=== PATIENT | female | born 1985 | race Caucasian/White ===

== ENCOUNTER 2019-10-26 07:29 | Emergency (ER) | payer OTHER ==
[2019-10-26 07:58] VITALS: BP 132/84
--- NOTE | 2019-10-26 08:17 | UC ---
[facility] HPI - HPI Summary HPI Summary: WOKE UP LAST NIGHT WITH SWELLING RIGHT LOWER JAW. HAS KNOWN BROKEN TEETH. NO DOCUMENTED FEVER. - History of Current Complaint Chief Complaint: UCDentalProblem Stated Complaint: tooth ache Time Seen by Provider: 10/26/19 08:14 Hx Obtained From: Patient Hx Last Menstrual Period: IUD in place Onset/Duration: Sudden Onset, Lasting Hours, Still Present Severity: Moderate Pain Intensity: 8 Pain Scale Used: 0-10 Numeric Aggravating Factor(s): Heat, Cold, Chewing Alleviating Factor(s): Nothing - Allergies/Home Medications Allergies/Adverse Reactions: Allergies Allergy/AdvReac Type Severity Reaction Status Date / Time Penicillins Allergy Unknown Verified 10/26/19 07:58 Reaction Details PMH/Surg Hx/FS Hx/Imm Hx Respiratory History: Asthma - Surgical History Surgical History: Yes Surgery Procedure, Year, and Place: - Family History Known Family History: Positive: Non-Contributory - Social History Alcohol Use: Rare Substance Use Type: Excessive Caffeine Substance Use Comment - Amount & Last Used: diet coke all the time Smoking Status (MU): Heavy Every Day Tobacco Smoker Household Exposure Type: Cigarettes Review of Systems All Other Systems Reviewed And Are Negative: Yes Constitutional: Positive: Negative ENT: Positive: Dental Pain Respiratory: Positive: Negative Cardiovascular: Positive: Negative Gastrointestinal: Positive: Negative Physical Exam Triage Information Reviewed: Yes Appearance: Well-Nourished, Pain Distress - MODERATE Vital Signs: Initial Vital Signs Temp 98.8 F 10/26/19 07:55 Pulse 80 10/26/19 07:55 Resp 18 10/26/19 07:55 BP 132/84 10/26/19 07:55 Pulse Ox 94 10/26/19 07:55 Vital Signs Reviewed: Yes Eyes: Positive: Conjunctiva Clear ENT: Positive: Hearing grossly normal Dental: Positive: Gross Decay/Caries @ - DIFFUSELY., Dental Fracture @ - 28, 29 Neck: Positive: Supple, Tenderness @ - RIGHT ANTERIOR CERVICAL LAD, Enlarged Nodes @ - RIGHT ANTERIOR CERVICAL LAD, Other: - SOFT TISSUE SWELLING RIGHT LOWER JAW. Respiratory: Positive: No respiratory distress, No accessory muscle use Cardiovascular: Positive: Pulses Normal Abdomen Description: Positive: Soft Musculoskeletal: Positive: No Edema Neurological: Positive: Alert Psychological: Positive: Age Appropriate Behavior Skin: Negative: Rashes Dental Complaint Course/Dx - Course Course Of Treatment: PATIENT WITH DIFFUSELY POOR DENTITION WITH MULTIPLE TOOTH FRACTURES. WILL COVER FOR INFECTION WITH CLINDAMYCIN. PERIDEX MOUTH RINSE TWICE DAILY. IBUPROFEN NEEDED FOR PAIN. ENCOURAGED PATIENT TO CALL FOR DENTAL APPOINTMENT [facility]. - Differential Dx/Diagnosis Provider Diagnosis: Dental infection Discharge ED - Sign-Out/Discharge Documenting (check all that apply): Patient Departure All imaging exams completed and their final reports reviewed: No Studies - Discharge Plan Condition: Stable Disposition: HOME Prescriptions: Chlorhexidine MW 0.12% 473ML* [Peridex Mouth Wash 0.12%*] 15 ml SWISH SPIT BID # 1 bottle Clindamycin HCl 300 mg PO QID #40 capsule Ibuprofen TAB* [Motrin TAB* 800 MG] 800 mg PO Q8H PRN #30 tab PRN Reason: Pain Patient Education Materials: Toothache (ED) Referrals: [facility] [Outside] - If Needed Additional Instructions: TAKE THE ANTIBIOTICS FOR THE FULL COURSE. RINSE YOUR MOUTH WITH WATER AFTER EATING OR DRINKING ANYTHING. ANTISEPTIC MOUTH RINSE TWICE DAILY. TAKE IBUPROFEN NEEDED FOR PAIN. FOLLOW-UP WITH A DENTIST [facility]. [facility] DDS Dentist Office [address], [place] [address] Ha Lehman, CLEMENTINAS [address], [place] [address] Kiko Momin D.D.S. [address], [place] [address] Opens at 8am ORAL SURGERY [facility] Oral Surgery Teo Whitley [address] [place] [id number] [facility] Madhu George Jr., LexisD.S. [address], [address] [place] [address] [facility] Raul Christianson DDS [address] , [place] [address] CALL THE NUMBER BELOW FOR ASSISTANCE IN ESTABLISHING WITH A PCP An additional resource available to assist in finding the appropriate physician for your health care needs is the [facility] ([facility]em[facility]). You may contact them by calling [phone]. - Billing Disposition and Condition Condition: STABLE Disposition: Home
== END 2019-10-26 08:53 | disposition home or self-care (01) ==
LOC: UCEAST 07:29
DX: K04.7 Periapical abscess without sinus (principal); J45.909 Unspecified asthma, uncomplicated; M79.89 Other specified soft tissue disorders; F17.210 Nicotine dependence, cigarettes, uncomplicated; Z88.0 Allergy status to penicillin; S02.5XXA Fracture of tooth (traumatic), initial encounter for closed fracture; X58.XXXA Exposure to other specified factors, initial encounter; Y92.9 Unspecified place or not applicable
CPT/HCPCS: 99202; G0463

== ENCOUNTER 2024-09-11 18:05 | Inpatient (IN) ==
[2024-09-11] MEDS ORDERED: Albuterol/Ipratropium NEB.SOL (2.5/0.5 MG) 3 ML NEB.SOLN ONE (18:26)
[2024-09-11] MEDS: Albuterol/Ipratropium NEB.SOL (2.5/0.5 MG) 3 ML NEB.SOLN INH PRN (18:32)
[2024-09-11] MEDS: Magnesium Sulfate 2 gm BAG 2 GM/50 ML BAG IVPB ONE (18:50)
[2024-09-11] MEDS: methylPREDNISolone SOD SUCC 125 mg 2 ML VIAL IV ONE (18:50)
[2024-09-11 18:52] LABS: Venous Bicarbonate HCO3 35.5 mmol/L (24-28)
[2024-09-11 18:57] LABS: ABS Basophils 0.1 10^3/uL (0.0-0.1); ABS Eosinophils 0.1 10^3/uL (0.0-0.5); ABS Lymphocytes 1.6 10^3/uL (1.0-4.8); ABS Monocytes 0.7 10^3/uL (0.0-0.9); ABS Neutrophils 4.7 10^3/uL (1.5-7.6); ABS Nucleated RBC 0.01 10^3/ul; Eosinophil % 1.7 %; Hematocrit 36.5 % (35-45); Mean Corpuscular Hemoglobin 27.9 pg (27-33); Mean Corpuscular Hgb Conc 32.9 g/dL (31-36); Mean Corpuscular Volume 84.8 fL (80-97); Mean Platelet Volume 8.2 fL (7.5-11.2); Nucleated Red Blood Cells % 0.2 %/100WBC (0.0-0.8); Platelet Count 212 10^3/uL (150-450); Red Blood Count 4.31 10^6/uL (3.63-4.92); Red Cell Distribution Width 18.2 % (12-17); White Blood Count 7.3 10^3/uL (3.8-11.8)
[2024-09-11 19:35] LABS: Albumin 3.7 g/dL (3.2-5.2); Albumin/Globulin Ratio 0.9 (1-3); Calcium 8.8 mg/dL (8.6-10.3); Creatinine, Serum 0.78 mg/dL (0.51-0.95); Globulin 4.1 g/dL (2-4); Potassium 3.5 mmol/L (3.5-5.0); Total Bilirubin 0.5 mg/dL (0.2-1.0); Total Protein 7.8 g/dL (6.4-8.9); eGFR CKD-EPI 100.3 (>60)
[2024-09-11] MEDS: Iohexol 350 (CONTRAST) 500 ML MDV IV ONE (20:18)
[2024-09-11 20:26] LABS: High Sensitivity Troponin 1 Hr 13 pg/mL (<15)
[2024-09-11] MEDS: Nicotine PATCH 21 MG/24 HR PATCH TRANSDERM ONE (21:22)
[2024-09-11] MEDS: Albuterol/Ipratropium NEB.SOL (2.5/0.5 MG) 3 ML NEB.SOLN INH ONE (23:51)
[2024-09-12] MEDS ORDERED: Nicotine GUM 4MG FRUIT FLAVOR PO PRN (01:20)
[2024-09-12] MEDS: cefTRIAXone 1 gm/50 mL D5W 1 GM/50 ML BAG IV SCH (02:06)
[2024-09-12] MEDS: Albuterol/Ipratropium NEB.SOL (2.5/0.5 MG) 3 ML NEB.SOLN INH SCH ×2 (02:06→19:55)
[2024-09-12] MEDS: Lidocaine PATCH 5% PATCH TRANSDERM SCH ×2 (02:07→02:08)
[2024-09-12] MEDS: methylPREDNISolone SOD SUCC 40 mg/ml 1 ml VIAL IV SCH (02:09)
[2024-09-12] MEDS: Potassium Chlor 20 meq TAB.ER PO SCH (02:09)
[2024-09-12] MEDS: Furosemide 20 mg/2 ml IV VIAL IV ONE (02:52)
[2024-09-12 04:30] LABS: TSH Ultra Thyroid Stim Horm 4.7 mcIU/mL (0.34-5.60)
[2024-09-12 05:55] LABS: Hematocrit 33.3 % (35-45); Hemoglobin 11.1 g/dL (11.5-14.3); Mean Corpuscular Hemoglobin 28.1 pg (27-33); Mean Corpuscular Hgb Conc 33.4 g/dL (31-36); Mean Platelet Volume 8.3 fL (7.5-11.2); Platelet Count 182 10^3/uL (150-450); Red Blood Count 3.97 10^6/uL (3.63-4.92); White Blood Count 4.7 10^3/uL (3.8-11.8)
[2024-09-12 06:39] LABS: Calcium 8.4 mg/dL (8.6-10.3); Creatinine, Serum 0.78 mg/dL (0.51-0.95); Potassium 3.5 mmol/L (3.5-5.0); eGFR CKD-EPI 100.3 (>60)
[2024-09-12 07:30] LABS: ABS Lymphocytes 0.6 10^3/uL (1.0-4.8); ABS Monocytes 0.1 10^3/uL (0.0-0.9); ABS Neutrophils 3.9 10^3/uL (1.5-7.6); Anisocytosis 1+; Eosinophil % 0.1 %; Lymphocyte % 12.7 %; Nucleated Red Blood Cells % 0.1 %/100WBC (0.0-0.8); Polychromasia 1+
[2024-09-12] MEDS: Sulfur Hexaflouride MICROSPHR 25 MG VIAL IV PRN (08:27)
[2024-09-12] MEDS: FLUTICAS/UMECLI/VILANT 200-62.5-25 MDI (NF) INH SCH (10:13)
[2024-09-12] MEDS: Solifenacin 5 mg TAB (NF) PO SCH (10:13)
[2024-09-12] MEDS: Nicotine PATCH 21 MG/24 HR PATCH TRANSDERM SCH (10:13)
[2024-09-12] MEDS: Furosemide 40 mg/4 ml IV VIAL IV SCH (11:22)
[2024-09-12] MEDS: Azithromycin 500 mg/250 ml NS 500 MG/250 ML BAG IVPB SCH (11:22)
[2024-09-13] MEDS: cefTRIAXone 1 gm/50 mL D5W 1 GM/50 ML BAG IV SCH (00:25)
[2024-09-13] MEDS: Albuterol/Ipratropium NEB.SOL (2.5/0.5 MG) 3 ML NEB.SOLN INH PRN (01:09)
[2024-09-13] MEDS: guaiFENesin 100 mg/5 ml LIQ unit dose cup PO PRN (01:16)
[2024-09-13] MEDS ORDERED: cefTRIAXone 1 gm/50 mL D5W 1 GM/50 ML BAG IV SCH (02:00)
[2024-09-13 08:14] LABS: ABS Basophils 0.1 10^3/uL (0.0-0.1); ABS Eosinophils 0.1 10^3/uL (0.0-0.5); ABS Lymphocytes 2.6 10^3/uL (1.0-4.8); ABS Monocytes 0.6 10^3/uL (0.0-0.9); ABS Nucleated RBC 0.01 10^3/ul; Calcium 8.6 mg/dL (8.6-10.3); Creatinine, Serum 0.91 mg/dL (0.51-0.95); Eosinophil % 0.6 %; Hematocrit 33.9 % (35-45); Hemoglobin 11.2 g/dL (11.5-14.3); Lymphocyte % 28.2 %; Mean Corpuscular Hemoglobin 28.1 pg (27-33); Mean Corpuscular Volume 85.2 fL (80-97); Mean Platelet Volume 8.7 fL (7.5-11.2); Nucleated Red Blood Cells % 0.1 %/100WBC (0.0-0.8); Platelet Count 195 10^3/uL (150-450); Potassium 3.7 mmol/L (3.5-5.0); Red Blood Count 3.98 10^6/uL (3.63-4.92); Red Cell Distribution Width 18.1 % (12-17); White Blood Count 9.4 10^3/uL (3.8-11.8); eGFR CKD-EPI 83.3 (>60)
[2024-09-13] MEDS ORDERED: Azithromycin 500 mg/250 ml NS 500 MG/250 ML BAG IVPB SCH (11:00)
[2024-09-14 06:31] LABS: Hematocrit 33.9 % (35-45); Hemoglobin 11.1 g/dL (11.5-14.3); Mean Corpuscular Hemoglobin 27.8 pg (27-33); Mean Corpuscular Hgb Conc 32.7 g/dL (31-36); Mean Corpuscular Volume 84.9 fL (80-97); Mean Platelet Volume 8.2 fL (7.5-11.2); Platelet Count 201 10^3/uL (150-450); Red Blood Count 3.99 10^6/uL (3.63-4.92); Red Cell Distribution Width 18.4 % (12-17); White Blood Count 7.7 10^3/uL (3.8-11.8)
[2024-09-14 07:14] LABS: ABS Lymphocytes 1.6 10^3/uL (1.0-4.8); ABS Monocytes 0.5 10^3/uL (0.0-0.9); ABS Neutrophils 5.6 10^3/uL (1.5-7.6); Anisocytosis 1+; Eosinophil % 0.2 %; Lymphocyte % 20.4 %
[2024-09-14 07:21] LABS: Calcium 8.4 mg/dL (8.6-10.3); Creatinine, Serum 0.74 mg/dL (0.51-0.95); Potassium 4.5 mmol/L (3.5-5.0); eGFR CKD-EPI 106.8 (>60)
[2024-09-15 05:35] LABS: ABS Basophils 0.1 10^3/uL (0.0-0.1); ABS Lymphocytes 1.3 10^3/uL (1.0-4.8); ABS Monocytes 0.5 10^3/uL (0.0-0.9); ABS Neutrophils 6.1 10^3/uL (1.5-7.6); ABS Nucleated RBC 0.01 10^3/ul; Eosinophil % 0.2 %; Hemoglobin 11.1 g/dL (11.5-14.3); Lymphocyte % 16.1 %; Mean Corpuscular Hemoglobin 27.7 pg (27-33); Mean Corpuscular Hgb Conc 32.5 g/dL (31-36); Mean Corpuscular Volume 85.3 fL (80-97); Mean Platelet Volume 8.4 fL (7.5-11.2); Nucleated Red Blood Cells % 0.1 %/100WBC (0.0-0.8); Platelet Count 196 10^3/uL (150-450); Red Blood Count 3.99 10^6/uL (3.63-4.92); Red Cell Distribution Width 18.7 % (12-17)
[2024-09-15 06:12] LABS: Calcium 8.6 mg/dL (8.6-10.3); Creatinine, Serum 0.68 mg/dL (0.51-0.95); Potassium 4.5 mmol/L (3.5-5.0)
[2024-09-16 07:02] LABS: ABS Basophils 0.1 10^3/uL (0.0-0.1); ABS Eosinophils 0.2 10^3/uL (0.0-0.5); ABS Lymphocytes 2.7 10^3/uL (1.0-4.8); ABS Monocytes 0.7 10^3/uL (0.0-0.9); ABS Neutrophils 6.3 10^3/uL (1.5-7.6); ABS Nucleated RBC 0.01 10^3/ul; Eosinophil % 1.6 %; Hematocrit 34.2 % (35-45); Lymphocyte % 27.2 %; Mean Corpuscular Hemoglobin 27.6 pg (27-33); Mean Corpuscular Hgb Conc 32.2 g/dL (31-36); Mean Corpuscular Volume 85.7 fL (80-97); Mean Platelet Volume 8.1 fL (7.5-11.2); Nucleated Red Blood Cells % 0.1 %/100WBC (0.0-0.8); Platelet Count 206 10^3/uL (150-450); Red Cell Distribution Width 18.8 % (12-17); White Blood Count 9.9 10^3/uL (3.8-11.8)
[2024-09-16] MEDS: Albuterol HFA INHALER 8 gm MDI INH PRN (07:34)
[2024-09-16 07:42] LABS: Calcium 8.7 mg/dL (8.6-10.3); Creatinine, Serum 0.7 mg/dL (0.51-0.95); Magnesium 1.9 mg/dL (1.9-2.7); Potassium 4.3 mmol/L (3.5-5.0); eGFR CKD-EPI 114.2 (>60)
[2024-09-16] MEDS: Magnesium Sulfate 2 gm BAG 2 GM/50 ML BAG IVPB ONE (11:27)
[2024-09-16 14:14] VITALS: BP 137/79
== END 2024-09-16 20:00 | disposition home or self-care (01) | DRG 140 ==
LOC: EDHOLD 18:05 → ED 18:05 → SUATTDRO 23:36 → MEDTELE 09-12 13:46
PROVIDERS: ADMIT Student in an Organized Health Care Education/Training Program; ATTEND Internal Medicine